=== PATIENT | male | born 1980 | race Hispanic/Latino ===

== ENCOUNTER 2024-06-12 09:23 | Day surgery (SDC) | payer OTHER ==
[~2024-06-12] VITALS: Ht 157.5 cm; Wt 58.5 kg
[2024-06-12] VITALS (9 sets, daily range): BP systolic 99–113; BP diastolic 54–78; PULSE 57–79; RESP 14–17; TEMP 97.2–97.4
[2024-06-12] MEDS: 0.9%NACL 1000ML 1,000 ML IV ONE (11:48)
[2024-06-12] MEDS ORDERED: proPOFol 10 MG/ML 20ML VIAL IV ONE (12:18)
--- NOTE | 2024-06-12 13:26 | NUR ---
Full and complete discharge instructions given to Patient and Family both verbally and in writing. Explained GI procedure precautions and follow up. All questions answered. PIV removed with catheter tip intact. Home with Family W/C to POV.
== END 2024-06-12 13:30 | disposition home or self-care (01) ==
LOC: ENDO 09:23 → DAH 09:23 → ENDO 13:30
PROVIDERS: ATTEND Internal Medicine Gastroenterology
DX: K92.1 Melena (principal); K64.1 Second degree hemorrhoids; G43.909 Migraine, unspecified, not intractable, without status migrainosus; Z88.6 Allergy status to analgesic agent; K62.89 Other specified diseases of anus and rectum; Z87.891 Personal history of nicotine dependence
CPT/HCPCS: 45380; 00811; J7030 ×2; J2704; A4215 ×2; A4223; A4222; A4221; A4663; A4606; J3490